=== PATIENT | male | born 1965 | race Caucasian/White ===

== ENCOUNTER 2024-12-22 15:03 | Emergency (ER) | payer MEDICAID ==
[~2024-12-22] VITALS: Ht 170.2 cm; Wt 77.0 kg
[2024-12-22 15:06] VITALS: TEMP 37; O2SAT 96
[2024-12-22] MEDS: KETOROLAC 30MG/ML VIAL IV STA (15:53)
[2024-12-22] MEDS: ACETAMINOPHEN 325MG TABLET PO STA (15:53)
[2024-12-22] MEDS ORDERED: DIPHENHYDRAMINE 50MG/ML VIAL IM ONE (16:15)
[2024-12-22] MEDS ORDERED: METOCLOPRAMIDE HCL 10MG TABLET PO ONE (16:15)
[2024-12-22 17:46] LABS: BASOPHILS % 0.7 % (0.0-2.0); HEMOGLOBIN. 14.4 g/dL (14.0-18.0); MEAN CORPUSCULAR HEMOGLOBIN 31.5 pg (28.0-32.0); MEAN CORPUSCULAR HGB CONC 33.5 g/dL (31.0-37.0); MEAN CORPUSCULAR VOLUME 93.9 fL (80.0-94.0); MEAN PLATELET VOLUME 7.4 fl (7.4-10.4); MONOCYTES % 8.1 % (2.0-8.0); NEUTROPHILS % 64.2 % (40.0-76.0); PLATELET 289 x1000/uL (130-400); RED BLOOD CELL COUNT 4.58 mill/uL (4.7-6.1); RED CELL DISTRIBUTION WIDTH 14.9 % (11.6-14.6); WHITE BLOOD COUNT 8.2 x1000/uL (4.5-11.0)
[2024-12-22 17:55] LABS: CHLORIDE 105 mEq/L (98-107); POTASSIUM 4.1 mEq/L (3.5-5.1); SODIUM 140 mEq/L (136-145)
[2024-12-22 17:56] LABS: CARBON DIOXIDE 26 mEq/L (21-32)
[2024-12-22 17:57] LABS: CALCIUM 9.4 mg/dL (8.7-10.4)
[2024-12-22] MEDS: METOCLOPRAMIDE HCL 10MG TABLET PO NR (18:00)
[2024-12-22] MEDS: KETOROLAC 15MG/ML VIAL IV ONE (18:00)
[2024-12-22] MEDS: DIPHENHYDRAMINE 50MG/ML VIAL IM NR (18:00)
[2024-12-22 18:01] LABS: CREATININE 0.7 mg/dL (0.6-1.3); GLUCOSE 102 mg/dL (70-105)
[2024-12-22 18:02] LABS: UREA NITROGEN BLOOD 20 mg/dL (9-23)
[2024-12-22 21:54] VITALS: BP 156/93; PULSE 58; RESP 20; O2SAT 100
== END 2024-12-22 21:58 | disposition home or self-care (01) ==
LOC: ER 15:03 → CANBEDREQ 18:48 → ER 21:58
DX: R51.9 Headache, unspecified (principal); I10 Essential (primary) hypertension; Z95.1 Presence of aortocoronary bypass graft
CPT/HCPCS: 80048; 85025; 36415; 71045; 70450; 96372; 96374; 96376; 99285; J8597; J1200; J1885; Z7610